=== PATIENT | female | born 1960 | race Caucasian/White ===

== ENCOUNTER 2024-08-04 11:33 | Inpatient (IN) | payer BC, MEDICARE, SELFPAY ==
[2024-08-04] VITALS (29 sets, daily range): BP systolic 110–191; BP diastolic 56–117; BMI 43.1; BMI 35.4
--- NOTE | 2024-08-04 08:54 | ED.GENMED ---
History of Present Illness
General
Chief Complaint: Blood Pressure Problem
Source: patient
Exam Limitations: none
Time Seen by Provider: 08/04/24 08:20
History of Present Illness
History of Present Illness:
64-year-old female complaining of dizziness disequilibrium headache feeling off some chest pressure checked her blood pressure which was high. Currently feeling better.
Past History
Past History
ED Past Medical History: GERD, HTN, Hypercholesterolemia and Valvular disease
ED Past Surgical History: Cholecystectomy
Social History
Tobacco: Non-smoker
Alcohol: None
Drug: None
Family History
Family History: Other ([place] - father)
Review of Systems
Review of Systems
All Other Systems: Not applicable
Constitutional: Denies fever
Cardiac: Denies syncope
ABD/GI: Reports no symptoms
Neurological: Denies weakness or numbness
Phy Exam
Physical Exam
Physical Exam:
GENERAL: Alert and oriented in no apparent distress
EYE: Orbits normal. Extraocular muscles intact
NECK: Supple, no carotid bruit
ENT: Pharynx without erythema
CARDIAC: Regular rate and rhythm with mild to moderate midsystolic murmur
LUNGS: Clear breath sounds,normal
ABDOMEN: Soft, without focal tenderness or distention
NEUROLOGICAL: Alert and oriented , cranial nerves II through XII intact. Speech normal. [id number] normal. [id number]-[id number] normal. Light touch intact.
SKIN: Warm and dry, no rash or lesion, no discoloration, skin intact.
MUSCULOSKELETAL: No edema,no deformity.Good color
PSYCH: Normal and appropriate interaction.
Course
Orders/Labs/Results
Orders:
Orders
08/04/24 08:18
Electrocardiogram (*1) Urgent
Reason for Study: Hypertension, Benign
08/04/24 08:19
EKG- Treatment ONCE
08/04/24 08:48
IV Insert/Care/Rem.- Treatment PRN
08/04/24 08:49
CT Head W/o Iv Contrast Urgent
Comment:
Reason For Exam: Headache/disequilibrium
Cardiac Monitoring- Treatment ONCE
08/04/24 08:58
Basic Metabolic Panel Urgent
Complete Blood Count/With Diff Urgent
Troponin I Urgent
08/04/24 09:00
PTT Urgent
Comment: Obtain baseline before beginning heparin infusion if not already collected
08/04/24 09:01
US Cerebrovascular Urgent
Comment:
Reason For Exam: Disequilibrium/dizziness
08/04/24 09:54
Heparin 4,000 units IV NOW STA
08/04/24 10:00
Heparin 36074 Units/250 ml 25,000 units in 250 ml IV PER PROTOCOL
Weight to be used for heparin protocol in kilograms (kg):: 112
Protocol:: Cardiac Tx/Acute Coronary
PTT Goal Range to be used:: PTT 73 to 111 seconds
Order type:: Initial
INITIAL Infusion Dose (UNITS/KG/hr) & then follow protocol:: 12 units/kg/hr
Infusion Dose in UNITS/hr & then follow protocol (UNITS/hr):: 1,000
INFUSION RATE in mL/hr & then follow protocol (mL/hr):: 10
PTT less than or equal to 64 seconds:: Increase rate by 200 units/hr (+ 2 mL/hr)
PTT 64.1 to 72.9 seconds:: Increase rate by 100 units/hr (+ 1 mL/hr)
PTT 73 to 111 seconds:: Target Range. No change in rate.
PTT 111.1 to 130.9 seconds:: Decrease rate by 100 units/hr (- 1 mL/hr)
PTT 131 to 199.9 seconds:: HOLD for 1 hr. Then decrease rate by 200 units/hr (- 2 mL/hr)
PTT greater than or equal to 200 seconds:: HOLD for 2 hrs & Notify Provider. Then decrease by 200 units/hr (-
2 mL/hr)
Lab follow-up:: Each change, PTT q6h until 2 consecutive are therapeutic. Then PTT
daily.
08/04/24 10:53
EKG [Electrocardiogram (*1)] Urgent
Reason for Study: Tachycardia
EKG- Treatment ONCE
08/04/24 10:56
Aspirin 325 mg PO NOW STA
Nitroglycerin Sublingual [Nitrostat (Sublingual)] 0.4 mg SL NOW STA
08/04/24 11:02
Admit/Transfer Patient As Directed
Co-Sign Provider:
Level of Care: Inpatient admission
Assign to:: IVU
Physician / Group: nasra watson
Diagnosis: acs/nstemi
Reason for Hospitalization: acs/nstemia
Expected length of stay greater than two midnights?: Yes
ELOS- Estimated Length of Stay in days: 2
I certify the patient meets the requirements for IP care: Yes
08/04/24 11:04
PRN Pain Medication Management As Directed
May give lesser potent ordered pain med per pt: Yes
preference::
Protocol:: Medication orders for pain may be administered in a
manner that supports deferring to patient preference
when the pt is:
- Requesting an ordered lesser potent pain medication.
Least to most potent pain medications are defined
as: acetaminophen < NSAID < tramadol < opioids
(morphine, oxycodone, hydromorphone).
- Requesting a lesser dose of the same medication IF
ORDERED.
- Requesting a less intrusive route of administration
if both routes are prescribed by the provider (PO <
IV).
08/04/24 11:08
Code Status As Directed
Resuscitation Status: Full Code
08/04/24 11:13
Activity As Directed
Activity Level: With Assistance
Vital Signs As Directed
Frequency: Per unit guidelines
Pulse Ox/spot Check [RESP] Routine
Quantity: 1
08/04/24 11:30
Nitroglycerin 100 mg/250 ml [Nitroglycerin Premix] 100 mg in 250 ml IV PER PROTOCOL
Initial dose in mcg/min, then titrate:: 10
Titrate to keep:: Chest Pain Free
Titrate by mcg/min:: 5 mcg/min, may increase by 10 mcg/min if dose > 20 mcg/min
Frequency of titrations (minutes):: every 3-5 minutes
Maximum dose in mcg/min:: 200
Begin to taper infusion when:: Remained at goal for 2hrs
Taper by mcg/min:: 5 mcg/min
Frequency of taper (minutes) if patient maintains goal:: 30
Taper to off?: Yes
If infusion off & no longer maintaining goal:: Contact Provider
08/04/24 11:31
Echo 2D MMode Color/Doppler [Echo 2D MMode Color/Doppler] Urgent
Reason for Study: chest pain and aortic stenosis
Cardiology Consult: Imer Loya
08/04/24 11:38
Lipid Profile [Cardiovascular Evaluation] Stat
08/04/24 11:39
Hemoglobin A1c [Glycohemoglobin (HgbA1c)] Stat
Troponin I Q6H
08/04/24 14:15
Bisacodyl [Dulcolax] 10 mg RECTAL [id number] PRN
Docusate W/Senna [Senokot-S] 1 tablet PO BIDPRN PRN
Polyethylene Glycol Powder [Miralax] 17 grams PO DAILYPRN PRN
08/04/24 16:30
PTT Urgent
08/04/24 17:15
Troponin I Q6H
08/04/24 18:00
Atorvastatin [Lipitor] 40 mg PO QPM
08/04/24 20:00
Lisinopril [Zestril] 10 mg PO BID
Metoprolol [Lopressor] 12.5 mg PO BID
08/04/24 22:00
Acetaminophen [Tylenol] 325 mg PO HS
08/04/24 23:15
Troponin I Q6H
08/05/24 06:00
Basic Metabolic Panel IN AM
Complete Blood Count/No Diff IN AM
08/05/24 08:00
fluticasone propionate 1 spray NASAL DAILY
08/05/24 18:00
Aspirin Low Dose EC [Aspir Low (Enteric Coated)] 81 mg PO QPM
08/06/24 06:00
Basic Metabolic Panel IN AM
Complete Blood Count/No Diff IN AM
08/07/24 06:00
Basic Metabolic Panel IN AM
Complete Blood Count/No Diff IN AM
08/08/24 06:00
Basic Metabolic Panel IN AM
Complete Blood Count/No Diff IN AM
08/09/24 06:00
Basic Metabolic Panel IN AM
Complete Blood Count/No Diff IN AM
08/10/24 06:00
Basic Metabolic Panel IN AM
Complete Blood Count/No Diff IN AM
Abnormal Lab Results
08/04/24
08:58
Creatinine 0.5 L mg/dL
(0.6-1.0)
Glucose 112 H mg/dl
(70-99)
08/04/24 08:58
08/04/24 08:58
Vital Signs
Initial and Last Documented VS:
Initial Vital Signs
Temp Pulse Resp BP Pulse Ox
98.0 F 112 16 191/109 98
08/04/24 08:15 08/04/24 08:15 08/04/24 08:15 08/04/24 08:15 08/04/24 08:15
Last Documented Vital Signs
Temp Pulse Resp BP Pulse Ox
98.0 F 75 14 126/77 94
08/04/24 08:15 08/04/24 14:07 08/04/24 12:45 08/04/24 12:40 08/04/24 12:45
MDM/Problems Addressed
Differential Diagnosis Includes:
Patient with vague symptoms including chest tightness neck tightness dizziness shakiness concern for blood pressure. Clinically stable and nontoxic. Workup in progress. Doubt cardiac but this will be evaluated. Doubt stroke although in the
differential. Neurologically stable. She does have a murmur but she does not know the source of. Will try to contact her behavioral health care coordinator.
*Pulse Oximetry
SaO2: 98
Oxygen Mode of Delivery: Room air
Patient hypoxic: no
*EKG
Interpreted by ED Provider?: Yes
Interpretation: abnormal
Comparison EKG: no comparison EKG present
Heart Rate: 98
Rate: normal
Rhythm: sinus
[place]: normal axis
Interval: normal interval
QRS Pattern: normal QRS
Ischemia: non-specific ST changes
*Critical Care Note
Total Time (30-74mins, 75-104mins- exclusive of procedures): Not Applicable
Update Note
Update Note:
0955.... Troponin positive. I reevaluated the patient who remains in no distress. Reassessed her history. This time she stated this started with bilateral jaw pain neck tightness some chest tightness along with the dizziness she described
earlier. She has very minimal symptoms at this time. Will start heparin. No contraindication. Cardiology and hospitalist contacted
ED Attending Note
-
Portions of this chart may have been created with voice recognition software.� Occasional wrong word or��sound alike� substitutions may have occurred due to the inherent limitations of voice recognition software.
Discharge Plan
Departure
Patient Disposition: Admit
Date of Disposition: 08/04/24
Time of Disposition: 09:56
Presentation/result/management discussed w/ accepting MD/DO: Cardiology
Discharge Problem:
Non-STEMI NC
Interventions
Interventions:
*Risk Screen - Suicide Last Done: 08/04/24 08:15
*General Assessment Last Done: 08/04/24 08:39
*Neglect/Abuse Screening Last Done: 08/04/24 08:15
*ED- Fall Risk Assessment Last Done: 08/04/24 08:39
*ED COVID-19 Vaccine History Last Done: 08/04/24 08:39
*Nursing Disposition Last Done: 08/04/24 12:51
ED- Cardiac Assessment Last Done: 08/04/24 08:39
ED- Neurological Assessment Last Done: 08/04/24 08:39
ED- Pulmonary Assessment Last Done: 08/04/24 08:39
Discharge Date and Time
Discharge Date/Time: 08/04/24 12:52
[2024-08-04 09:14] LABS: Hematocrit 40.3 % (37.0-47.0); Hemoglobin 13.8 g/dL (12.0-16.0); Mean Corp Hgb Conc. 34.2 g/dL (33.0-37.0); Mean Corpuscular Volume 90.2 fL (81.0-99.0); Nucleated Red Blood Cells % 0 %; Platelet Count 265 10^3/uL (130-400); Red Cell Dist. Width 13.2 % (11.5-14.5)
[2024-08-04 09:46] LABS: Blood Urea Nitrogen 15 mg/dl (7-17); Calcium 10.1 mg/dl (8.4-10.2); Carbon Dioxide 28 mmol/L (22-30); Chloride 106 mmol/L (98-107); Estimated Creatinine Clearance 117 ml/min; Glucose 112 mg/dl (70-99); Potassium 4.2 mmol/L (3.5-5.1); Sodium 143 mmol/L (135-145); eGFR > 60.00
[2024-08-04] MEDS: HEPARIN 4000 UNITS IV (10:18)
[2024-08-04] MEDS: HEPARIN 25000 UNITS/250 ML IV (10:19)
[2024-08-04 10:37] LABS: APTT 28.5 Sec (23.4-35.0)
[2024-08-04] MEDS: ASPIRIN 325 MG PO (11:09)
[2024-08-04] MEDS: NITROSTAT (SUBLINGUAL) 0.4 MG SL (11:09)
--- NOTE | 2024-08-04 11:22 | CON.CAR ---
Addendum entered and electronically signed by Janna Engle PA-C 08/04/24 14:15:
Second troponin returned < 0.012. Given rather quick change compared to initial, called down to lab who re-ran both troponin samples from 08:58 and 11:39. On re-run, initial troponin also negative (NOT 1.02). Possible sampling error by report. Value
updated in [employer]. Care team updated.
Addendum entered and electronically signed by Imer Loya MD 08/04/24 13:08:
Attending addendum: Patient seen and examined. PA note reviewed and findings independently confirmed by me. I met with the patient, her , and discussed the case with Dr. Kirk. Briefly, this is a 64-year-old female with a past medical
history notable for hypertension, hyperlipidemia, prior TIA secondary to hypertension, and aortic valve stenosis rated as mild by her last echocardiogram in 2021. She presented to [facility] for evaluation of of dizziness associated with
neck and jaw discomfort that began this morning after she returned from a [employer] shopping trip at about 7 AM. She presented to the emergency department for further evaluation primarily with complaints of dizziness and did not initially even
mention chest discomfort or jaw discomfort.
Her troponin returned mildly elevated at 1.02 ng/mL but was undetectable on remeasurement several hours later.
She does have known aortic stenosis with an echocardiogram earlier today measuring a mean gradient of 28 mmHg. LV function was normal.
GEN: AAO x 3.��No acute distress
HEENT:��NC/AT, sclera are anicteric, hearing and nares are normal.��MMM
NECK: Supple.��Normal JVP
LUNGS: Clear to bases bilaterally.��No wheezing or rhonchi
CV: Regular rate and rhythm.��Normal S1/S2.��No S3, No S4.��Murmur: 2/6 crescendo decrescendo murmur right upper sternal border and apex
ABD : Soft, NT, ND, No HSM.��Bowel sounds are present. Bruit is present versus radiation of aortic murmur.
EXT: No CCE
NEURO: No focal neurologic deficits�
IMPRESSION/RECOMMENDATIONS:
-Chest pain with elevated troponin
Will proceed with coronary angiography given waxing and waning in symptoms. Interestingly repeat troponin returned undetectable. Will call chemistry laboratory and ask him to confirm results
Given symptoms and elevated troponin we will proceed with coronary angiography
Patient initially stated that she was told she was allergic to IV contrast following breast MRI. We discussed that gadolinium is different than contrast utilized for CT scans or IV contrast. When she came to the catheterization laboratory she
reported that her throat closed and she experienced skin itchiness at some point in the past related to contrast. This was completely different than her initial explanation of the contrast allergy and the decision was made to proceed with
premedication including steroid and Benadryl.
Continue IV nitro and heparin
Risks and benefits of catheterization and angioplasty explained in depth both to the patient and to her . They were both in agreement to proceed
-Aortic stenosis
Moderate by echocardiogram with preserved LV function
-Hypertension
Patient does not monitor home blood pressures with any regularity. Will titrate medicines based on�readings while hospitalized
-Hyperlipidemia
May need higher intensity statin for goal LDL cholesterol less than 70 mg/dL or closer to 55 mg/dL based on angiographic findings
Original Note:
Consultation
Consultation Request
Date/Time Consultation Requested: 08/04/2024
Date/Time Consultation Performed: 08/04/2024
Requesting Provider: Dr. Kirk
Performing Provider: Janna Engle PA-C for Dr. Loya
Reason for Consultation: NSTEMI
Medical History
-
History of Present Illness:
HPI: Leila is a 64 year old female with PMH of hypertension, hyperlipidemia, aortic stenosis, prior TIA, and GERD. Presented to [facility] ER for evaluation of chest pressure with radiation into her neck and jaw as well as dizziness/headache. She
states she woke up at 4AM today and felt she was in her normal state of health, but by 7 AM began noticing pressure/heaviness along her anterior chest which feels like someone is standing on her. She notes the pressure goes into her neck/jaw and she
states it feels as though her jaw is wired shut. She took her normal AM medications as well as benadryl and tylenol and had no change in her symptoms, so she drove to [facility] for evaluation. On arrival, she continued with 2-3/10 chest pressure and
dizziness. In ER, carotid US and head CT were without acute abnormality. Labwork returned with elevated troponin of 1.02. She was started on IV heparin and cardiology consulted for evaluation. BP overall stable in ER, however notes this AM when
symptoms including headache started, BP was 180/100. Notes no SOB other than feeling the tightness/pressure into her throat. Denies any symptoms leading up to this event this AM.
PMH:
HTN
HLD
Mild-moderate
h/o TIA
GERD
Past Medical History
Past Medical History: Other (In HPI)
Past Surgical History: Cholecystectomy and Other (hysterectomy, carpal tunnel release, lumpectomy, hernia surgery)
Social History
Tobacco: Former Smoker
Alcohol: Occasional
Drug: None
Personal:
Living: With Family
Employment: Employed ([employer])
Family History
Family History: CAD and Cancer
Allergies / Home Medications
Allergy/AdvReac Type Severity Reaction Status Date / Time
amoxicillin Allergy Intermediate Rash Verified 08/04/24 08:17
iodine Allergy Intermediate Unknown Verified 08/04/24 08:17
levofloxacin (From Levaquin) Allergy Intermediate Unknown Verified 08/04/24 08:17
nitrofurantoin (From Allergy Intermediate Unknown Verified 08/04/24 08:17
Macrobid)
sulfamethoxazole Allergy Intermediate Unknown Verified 08/04/24 08:17
tramadol Allergy Intermediate Nausea / Verified 08/04/24 08:17
Vomiting
vancomycin Allergy Intermediate Unknown Verified 08/04/24 08:17
gabapentin Allergy Unknown Verified 08/04/24 08:17
Iodinated Contrast Media Allergy Unknown Verified 08/04/24 09:00
�Medication �Instructions �Recorded �Confirmed �Type
acetaminophen 325 mg tablet 325 mg PO HS 08/04/24 08/04/24 History
(Tylenol)
aspirin 81 mg tablet,delayed 81 mg PO QPM 08/04/24 08/04/24 History
release
cranberry fruit 450 mg tablet 450 mg PO DAILY 08/04/24 08/04/24 History
(cranberry)
diphenhydramine HCl 25 mg capsule 25 mg PO DAILYPRN PRN ALLERIGES 08/04/24 08/04/24 History
(Benadryl)
diphenhydramine HCl 25 mg capsule 25 mg PO HS 08/04/24 08/04/24 History
(Benadryl)
fluticasone propionate 50 1 spray intranasal DAILY 08/04/24 08/04/24 History
mcg/actuation nasal
spray,suspension
ibuprofen 600 mg tablet 600 mg PO DAILY 08/04/24 08/04/24 History
lisinopril 10 mg tablet 10 mg PO BID 08/04/24 08/04/24 History
milk thistle 150 mg capsule 150 mg PO DAILY 08/04/24 08/04/24 History
simvastatin 10 mg tablet 10 mg PO HS 08/04/24 08/04/24 History
turmeric 400 mg capsule 400 mg PO DAILY 08/04/24 08/04/24 History
Review of Systems
-
History Source: Patient
All other systems: Negative unless noted
Physical Exam
Vital Signs
Temp Pulse Resp BP Pulse Ox
98.0 F 90 21 154/71 96
08/04/24 08:15 08/04/24 10:30 08/04/24 10:30 08/04/24 11:09 08/04/24 10:30
Lab Results
08/04/24 08:58
08/04/24 08:58
Troponin I 1.020 ng/ml H* 08/04/24 08:58
Physical Exam
General: Well Developed, Well Nourished and No Apparent Distress
HEENT: Normocephalic, Anicteric and Moist Mucous Membranes
Respiratory: Clear and Non Labored Respirations
Cardiac: S1/S2, Regular Rhythm and Murmur
Musculoskeletal: No Clubbing, No Cyanosis and No Edema
Skin: Warm and Dry
Neuro: AO x 3 and Nonfocal/Grossly Intact
Psych: Calm
Impression / Plan
-
PCP: Dr. Brand
Component Technician: Dr. Wallace ([facility])
Impression:
Presented with chest pain, dizziness
Elevated troponin, concern for NSTEMI
HTN
HLD
Mild-moderate
h/o TIA
GERD
Stress echo 09/2021: Low risk stress test with average exercise tolerance for age. EF 55%
Echo 06/2021 @ [facility]: Normal biventricular systolic function, mild LVH, mild to moderate with mean gradient 14 mmHg
Echo 08/04/2024: Study pending
Plan:
-Presented with chest pain which started this AM at 7AM with radiation into her jaw. Admitted with elevated troponin, concern for NSTEMI
-Initial troponin 1.02, continue to trend to peak.
-Still w/ CP into jaw in ER, SL nitro ordered by me, however still w/ pain, so starting nitro gtt. Titrate til pain free
-s/p aspirin 324mg in ER. Continue aspirin 81mg daily
-Agree w/ IV heparin.
-Check echo. Known mild-mod by last echo in 2021 at [facility].
-Carotid US, head CT negative in ER.
-BP elevated at home. Continue lisinopril, follow with starting nitro gtt, consider starting BB.
-On simvastatin 10mg daily as OP. CVE pending. May need to transition to high intensity statin.
-Hgb A1c pending
-Given chest pain with elevated troponin, concerning for NSTEMI, will plan for [facility] this admission, possibly later today.
-Keep NPO
HPI: Leila is a 64 year old female with PMH of hypertension, hyperlipidemia, aortic stenosis, prior TIA, and GERD. Presented to [facility] ER for evaluation of chest pressure with radiation into her neck and jaw as well as dizziness/headache. She
states she woke up at 4AM today and felt she was in her normal state of health, but by 7 AM began noticing pressure/heaviness along her anterior chest which feels like someone is standing on her. She notes the pressure goes into her neck/jaw and she
states it feels as though her jaw is wired shut. She took her normal AM medications as well as benadryl and tylenol and had no change in her symptoms, so she drove to [facility] for evaluation. On arrival, she continued with 2-3/10 chest pressure and
dizziness. In ER, carotid US and head CT were without acute abnormality. Labwork returned with elevated troponin of 1.02. She was started on IV heparin and cardiology consulted for evaluation. BP overall stable in ER, however notes this AM when
symptoms including headache started, BP was 180/100. Notes no SOB other than feeling the tightness/pressure into her throat. Denies any symptoms leading up to this event this AM.
Data Reviewed
-
EKG: Tracing Personally Visualized and interpreted
CT Scan: Report Reviewed by me
Ultrasound: Report Reviewed by me
Labs: Labs Reviewed by me
Old Records: Requested and Reviewed
--- NOTE | 2024-08-04 11:34 | CM ---
CM reviewed chart and met with pt and bedside in ED.
Lives with in 1 level apartment, [address]
Independent in ADLs, personal care and ambulation at baseline. No DME.
No hx VN/SNF.
PCP: Zay Brand
Pharmacy: [facility]
Discharge plan: Anticipate home pending ongoing medical evaluation.
[2024-08-04] MEDS: NITROGLYCERIN PREMIX 250 IV (11:47)
[2024-08-04 12:06] LABS: Glycohemoglobin (HgbA1c) 5.6 % (4.0-5.6)
--- NOTE | 2024-08-04 12:06 | CARDSERVLU ---
Echocardiogram with Lumason completed after protocol screening completed. Allergies verified.
Patent IV site: _Right forearm site clear____
IV site flushed with 0.9% NaCl pre and post administration.
Diluted bolus method utilized to enhance visualization of ventricular pelletier.
Total volume given: ___3_ mL
Patient tolerated all procedures well without complications.
[2024-08-04 12:16] LABS: HDL Cholesterol 53 mg/dl; LDL Cholesterol, Calculated 96 mg/dl; Very Low Density Lipoprotein 19 mg/dl (0-30)
[2024-08-04 12:28] LABS: Troponin I < 0.012 ng/ml
--- NOTE | 2024-08-04 13:42 | ITS.CL.CATH ---
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
Cardiac Catheterization
Procedure Report:
LEFT HEART CATHETERIZATION
Date of Procedure: August 04, 2024
Referring: Dr. Amanda Barton
PROCEDURES:
1. Left heart catheterization with coronary angiography
INDICATION: This is a 64-year-old female with a past medical history notable for hypertension, hyperlipidemia, hypertensive associated TIA, and aortic stenosis. She presented to [facility] for evaluation of dizziness and was found to be
quite hypertensive. Her symptoms initially were felt to be attributed to hypertension but her troponin returned mildly elevated at 1.020 ng/mL. The patient then reported she had experienced chest heaviness and jaw discomfort leading her to seek
medical attention and that symptoms were persisting. A cardiology consult was requested. Her last echocardiogram from nearly 3 years ago had mild aortic stenosis. A repeat echocardiogram was performed and her mean gradient now measured 28 mmHg
with an aortic valve area 0.9 cm�. She continued to experience some level of chest and jaw discomfort although much improved from admission. A repeat troponin returned undetectable less than 0.012 ng/mL. However, in the setting of ongoing
symptoms she is referred for coronary angiography. She is now referred for coronary angiography.
ACCESS: Right radial artery, 6 Greek sheath
HEMODYNAMICS : (mmHg)
AO (s/d) : 128/77, 94
LV (s/d) : 155/8
LVEDP : 15
AORTIC VALVE
Peak gradient: 29 mmHg
CORONARY FINDINGS
DOMINANCE: Normal
LEFT MAIN: Normal
LEFT ANTERIOR DESCENDING: The LAD originates is a large-caliber vessel from the left main. A large first diagonal branch arises from the proximal third of the LAD and is widely patent. The mid LAD beyond the diagonal branch becomes a medium
caliber vessel that is widely patent to the apex.
CIRCUMFLEX: The circumflex is large and gives rise to a single sizable obtuse marginal branch which is widely patent
RIGHT CORONARY ARTERY: Large-caliber dominant vessel widely patent over its course
VENTRICULOGRAPHY: Not done
SEDATION: 26 minutes of procedural sedation was utilized. An independent medical services assistant was present to assist with and help manage the patient's level of consciousness and physiologic status.
RADIATION SUMMARY: Fluoro Time (min): 3.8, Dose (mGy): 447, DAP (Gy.cm2) : 22.4
Closure Device: TR band
CONCLUSIONS
1. Nonobstructive coronary disease
2. Moderate aortic stenosis
RECOMMENDATIONS
1. Continue management of coronary risk factors
2. Will need follow-up with Dr. Wallace and should have her aortic valve disease followed over time
Copy to: Dr. Josselin Wallace
[2024-08-04 14:02] LABS: Troponin I < 0.012 ng/ml
--- NOTE | 2024-08-04 15:16 | HPS.HSE ---
Family Physician
-
Family Physician: Zay Brand MD
Chief Complaint
-
chest pain
History of Present Illness
64 female history of hypertension high cholesterol who presented with acute onset of dizziness, nausea chest pressure which radiated to her jaw and neck that has been constant gets worse with exertion and improves with rest however is is not
alleviated. Started after going to [place] to buy [employer]. Father history of LA massive LA causing in his 60s.
Troponin in the once. EKG nonischemic however some ST T wave changes and inversions especially in the inferior leads. Blood pressure initially high however improved now.
Medical History
Past Medical History
Past Medical History: Reports HTN and Hypercholesterolemia
Past Surgical History: Reports Gynocological and Orthopedic
Social History
Tobacco: Former Smoker
Alcohol: None
Family History
Family History: CAD, Cancer and Diabetes
Allergies / Home Medications
Allergies reflects when Allergies were last updated in [facility].
Home Medications with original date entered in [facility]
Allergy/Medication List:
Allergies
Allergy/AdvReac Type Severity Reaction Status Date / Time
amoxicillin Allergy Intermediate Rash Verified 08/04/24 08:17
iodine Allergy Intermediate Unknown Verified 08/04/24 08:17
levofloxacin (From Levaquin) Allergy Intermediate Unknown Verified 08/04/24 08:17
nitrofurantoin (From Allergy Intermediate Unknown Verified 08/04/24 08:17
Macrobid)
sulfamethoxazole Allergy Intermediate Unknown Verified 08/04/24 08:17
tramadol Allergy Intermediate Nausea / Verified 08/04/24 08:17
Vomiting
vancomycin Allergy Intermediate Unknown Verified 08/04/24 08:17
gabapentin Allergy Unknown Verified 08/04/24 08:17
Iodinated Contrast Media Allergy Unknown Verified 08/04/24 09:00
Home Medications
acetaminophen 325 mg tablet (Tylenol) 325 mg PO HS 08/04/24
aspirin 81 mg tablet,delayed release 81 mg PO QPM 08/04/24
cranberry fruit 450 mg tablet (cranberry) 450 mg PO DAILY 08/04/24
diphenhydramine HCl 25 mg capsule (Benadryl) 25 mg PO DAILYPRN PRN ALLERIGES 08/04/24
diphenhydramine HCl 25 mg capsule (Benadryl) 25 mg PO HS 08/04/24
fluticasone propionate 50 mcg/actuation nasal spray,suspension 1 spray intranasal DAILY 08/04/24
ibuprofen 600 mg tablet 600 mg PO DAILY 08/04/24
lisinopril 10 mg tablet 10 mg PO BID 08/04/24
milk thistle 150 mg capsule 150 mg PO DAILY 08/04/24
simvastatin 10 mg tablet 10 mg PO HS 08/04/24
turmeric 400 mg capsule 400 mg PO DAILY 08/04/24
Review of Systems
-
A 12 point ROS was completed and negative except as noted: Yes
Physical Exam
Vital Signs
Vital Signs
Temp Pulse Resp BP Pulse Ox
98.1 F 80 18 125/79 98
08/04/24 13:55 08/04/24 14:30 08/04/24 14:00 08/04/24 14:30 08/04/24 14:00
Physical Exam
General: Well Developed and Well Nourished
HEENT: NormoCephalic and Anicteric
Respiratory: Clear
Cardiac: S1/S2 and Regular Rhythm
GI: Soft, Non Tender, Non Distended and Normal Bowel Sounds
Musculoskeletal: No Clubbing and No Cyanosis
Neuro: Awake, Alert, Oriented and AO x 3
Psych: Calm
Laboratory Results
-
08/04/24 08:58
08/04/24 08:58
Laboratory Results
APTT 28.5 Sec (23.4-35.0) 08/04/24 09:00
Troponin I < 0.012 ng/ml 08/04/24 11:39
Impression/Plan
-
Chest discomfort with anginal equivalents along with dizziness elevated troponin
Trend troponin
Heparin drip
property assessment monitor
2D echo
Cardiology consult
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
N.p.o.
A1c
Lipids
Hypertension
Continue antihypertensive
Hyperlipidemia
Stop simvastatin
Start high intensity statin
Check lipid profile
--- NOTE | 2024-08-04 15:34 | CM ---
Chart reviewed. Patient is independent of ADLS, lives with her in a apartment 2nd floor, [address] EMIR, 0 DME. Plan is for the patient to return home. CM to follow
[2024-08-04 17:50] LABS: APTT 29.1 Sec (23.4-35.0)
[2024-08-04] MEDS: LIPITOR 40 MG PO (17:52)
[2024-08-04 18:12] LABS: Troponin I < 0.012 ng/ml
--- NOTE | 2024-08-04 18:53 | PTCARENOTE ---
Received pt post cath. VSSl. Right radial cath site w/ R band intact with 9 ml of air. Pt denies chest pain or sob. Post angiography orders noted. Will monitor.
[2024-08-04] MEDS: ZESTRIL 10 MG PO (19:56)
[2024-08-04] MEDS: LOPRESSOR 12.5 MG PO (19:57)
[2024-08-04] MEDS: TYLENOL 325 MG PO (20:34)
[2024-08-04 23:49] LABS: Troponin I 0.028 ng/ml
[2024-08-05] VITALS (11 sets, daily range): BP systolic 120–150; BP diastolic 64–90; PULSE 68–78; O2SAT 96–98; BMI 42.5
[2024-08-05] MEDS: TYLENOL 325 MG PO (03:19)
[2024-08-05 04:16] LABS: Hematocrit 37.5 % (37.0-47.0); Hemoglobin 12.8 g/dL (12.0-16.0); Mean Corp Hgb Conc. 34.1 g/dL (33.0-37.0); Mean Corpuscular Volume 91.2 fL (81.0-99.0); Platelet Count 258 10^3/uL (130-400); Red Cell Dist. Width 13.3 % (11.5-14.5)
[2024-08-05 04:39] LABS: Blood Urea Nitrogen 15 mg/dl (7-17); Calcium 9.1 mg/dl (8.4-10.2); Carbon Dioxide 26 mmol/L (22-30); Chloride 110 mmol/L (98-107); Estimated Creatinine Clearance 103 ml/min; Glucose 81 mg/dl (70-99); Potassium 4.2 mmol/L (3.5-5.1); Sodium 143 mmol/L (135-145); eGFR > 60.00
--- NOTE | 2024-08-05 04:55 | PTCARENOTE ---
Pt NSR on monitor. AAOx4. VSS. Pt c/o GARRETT 04/14. Tylenol PRN effective. Pt independent in the room.
[2024-08-05] MEDS: LOPRESSOR 12.5 MG PO (08:08)
[2024-08-05] MEDS: ZESTRIL 10 MG PO (08:08)
--- NOTE | 2024-08-05 09:53 | PTOTSP ---
Patient demonstrates safe and independent mobility, asymptomatic throughout session, no skilled physical therapy needs at this time.
--- NOTE | 2024-08-05 10:54 | CM ---
Chart reviewed. Patient is independent of ADLS, lives with her in a 2nd floor apartment, 7 EMIR, 0 DME. Plan is for the patient to return home. CM to follow
--- NOTE | 2024-08-05 12:28 | W.DCSUMMARY ---
Discharge Summary
Discharge Data
Date of Admission: 08/04/24
Date of Discharge: 08/05/24
-
Pending Results: No
Hospital Course
64 female history of hypertension high cholesterol
Presented with dizziness chest discomfort with radiation to the jaw. There were no EKG changes however. Initially noted to have a troponin that was 1.0. Started on a heparin drip. Continued to have intermittent chest discomfort worse with
exertion and improved with rest along with dizziness. Therefore cardiology has obtained a 2D echocardiogram and recommended left heart catheterization urgently. 2D echocardiogram result as below. Left heart catheterization as below however
nonobstructive CAD. Orthostatic negative. Cardiology had no further recommendation. Increased dose of lisinopril to 20mg BID. Outpatient PCP and Cardiology follow up. Informed her if the dizziness return that she should come back to have a stroke
work up completed, she verbalized understanging.
2d echo
CONCLUSIONS
1. Left ventricle: Normal size and function with an estimated ejection
fraction of 55-60%. Mild concentric LVH. Indeterminate diastolic function.
2. Right ventricle: Normal
3. Atria: Normal
4. Mitral valve: No mitral regurgitation
5. Aortic valve: The aortic valve leaflets are thickened and restricted.
There is moderate aortic stenosis with peak and mean gradients of 59 and 28
mmHg respectively. The estimated aortic valve area by the continuity equation
is 0.9 cm2 when using an LVOT diameter of 1.8 cm. No aortic insufficiency.
6. Tricuspid valve: Normal tricuspid valve with no tricuspid regurgitation
7. No prior studies for comparison
[facility]
CONCLUSIONS
1. Nonobstructive coronary disease
2. Moderate aortic stenosis
RECOMMENDATIONS
1. Continue management of coronary risk factors
2. Will need follow-up with Dr. Wallace and should have her aortic valve disease followed over time
Seen on the day of dischagre. No new compalints. No acute overnight events
States symptoms have completely resovled. She wants to go home. She is ambulating fine wihtout dizziness and chest pain
Reviewed hospitalization and findings including false + troponin.
REviewed use of CPAP, follow up with sleep medicine and nasal pillow education that connects to the CPAP
Discussed weight loss and dietary changes
NAD
Scleral Anicteric
MMM
No JVD
CTABL
RRR, S1/S2, HEIDI at RUSB
Soft, NT, ND, BS+
Warm, Dry
AAOx3, 5/5 motor strength in b/l ue and le, cn II-XII intact
Calm
More than 30 minutes spent in discharge including
Final examination of the patient
Summarizing hospital stay
Instructions for continuing care to all relevant caregivers
Preparation of discharge records, prescriptions, and referral forms
Total time spent (in minutes): 33
Discharge Plan
-
Patient Disposition: Home (Routine Discharge)
Discharge Diagnosis/Procedures: cardiac catherization
Condition: Good
Diet: Low Fat, Low Cholesterol and No added salt
Activity: As tolerated
Activity Restrictions/Additional Instructions:
Presented with dizziness chest discomfort with radiation to the jaw. There were no EKG changes however. Initially noted to have a troponin that was 1.0. Started on a heparin drip. Continued to have intermittent chest discomfort worse with
exertion and improved with rest along with dizziness. Therefore cardiology has obtained a 2D echocardiogram and recommended left heart catheterization urgently. 2D echocardiogram result as below. Left heart catheterization as below however
nonobstructive CAD. Orthostatic negative. Cardiology had no further recommendation. Increased dose of lisinopril to 20mg BID. Outpatient PCP and Cardiology follow up.
2d echo
CONCLUSIONS
1. Left ventricle: Normal size and function with an estimated ejection
fraction of 55-60%. Mild concentric LVH. Indeterminate diastolic function.
2. Right ventricle: Normal
3. Atria: Normal
4. Mitral valve: No mitral regurgitation
5. Aortic valve: The aortic valve leaflets are thickened and restricted.
There is moderate aortic stenosis with peak and mean gradients of 59 and 28
mmHg respectively. The estimated aortic valve area by the continuity equation
is 0.9 cm2 when using an LVOT diameter of 1.8 cm. No aortic insufficiency.
6. Tricuspid valve: Normal tricuspid valve with no tricuspid regurgitation
7. No prior studies for comparison
[facility]
CONCLUSIONS
1. Nonobstructive coronary disease
2. Moderate aortic stenosis
RECOMMENDATIONS
1. Continue management of coronary risk factors
2. Will need follow-up with Dr. Wallace and should have her aortic valve disease followed over time
Stand Alone Forms: DC Instructions- Cath/EP Lab
Referrals:
Zay Brand MD [Family Provider, Internal Medicine]
Janusz Wallace MD [Active, Cardiology] - 09/04/24 3:00 pm
Prescriptions:
New
lisinopril [Zestril] 20 mg tablet
20 mg PO BID Qty: 60 0RF
Continued
simvastatin 10 mg tablet
10 mg PO HS
acetaminophen [Tylenol] 325 mg Tablet
325 mg PO HS
aspirin 81 mg Tablet,Delayed Release (Dr/Ec)
81 mg PO QPM
milk thistle 150 mg Capsule
150 mg PO DAILY
diphenhydramine HCl [Benadryl] 25 mg Capsule
25 mg PO HS
diphenhydramine HCl [Benadryl] 25 mg Capsule
25 mg PO DAILYPRN PRN (Reason: ALLERIGES)
ibuprofen 600 mg Tablet
600 mg PO DAILY
fluticasone propionate 50 mcg/actuation [place],Suspension
1 spray INTRANASAL DAILY
cranberry 450 mg Tablet
450 mg PO DAILY
turmeric 400 mg Capsule
400 mg PO DAILY
Discontinued
lisinopril 10 mg Tablet
10 mg PO BID
Discharge Orders:
Discharge Patient (As Directed); Ordered 08/05/24
Ordered By: Jasper Damon
Care Plan Goals
Care Plan Goals:
Problem: Readiness for enhanced knowledge related to diagnosis and treatment plan
Goal: Understand your diagnosis and treatment plan needs, including medications if applicable.
Instructions: Know your diagnosis, underlying causes and treatment plan options, including medications if applicable. Consult with your health care team to learn about your diagnosis and treatment plan, including medications if applicable.
Discharge Date and Time
Print Language: [place]
== END 2024-08-05 13:06 | disposition home or self-care (01) | DRG 287 ==
LOC: IVU 11:33
PROVIDERS: ADMITTING PHYSICIAN Hospitalist; EMERGENCY PHYSICIAN Emergency Medicine; FAMILY PHYSICIAN Internal Medicine; OTHER PHYSICIAN Internal Medicine Interventional Cardiology
PROC: 4A023N7 Measurement of Cardiac Sampling and Pressure, Left Heart, Percutaneous Approach (ICD-10-PCS; 2024-08-04)
PROC: B2111ZZ Fluoroscopy of Multiple Coronary Arteries using Low Osmolar Contrast (ICD-10-PCS; 2024-08-04)
DX: I25.10 Atherosclerotic heart disease of native coronary artery without angina pectoris (principal); R42 Dizziness and giddiness; E78.00 Pure hypercholesterolemia, unspecified; I10 Essential (primary) hypertension; I35.0 Nonrheumatic aortic (valve) stenosis; K21.9 Gastro-esophageal reflux disease without esophagitis; Z90.49 Acquired absence of other specified parts of digestive tract; Z86.73 Personal history of transient ischemic attack (TIA), and cerebral infarction without residual deficits; Z87.891 Personal history of nicotine dependence; Z82.49 Family history of ischemic heart disease and other diseases of the circulatory system; Z88.5 Allergy status to narcotic agent; Z88.0 Allergy status to penicillin; Z88.2 Allergy status to sulfonamides; Z88.8 Allergy status to other drugs, medicaments and biological substances; Z88.1 Allergy status to other antibiotic agents; Z88.3 Allergy status to other anti-infective agents; Z91.041 Radiographic dye allergy status; Z79.82 Long term (current) use of aspirin; Z83.3 Family history of diabetes mellitus; Z90.710 Acquired absence of both cervix and uterus
CPT/HCPCS: 70450; 80048; 80061; 83036; 84484; 85025; 85027; 85730; 93005; 93306; 93458; 93880; 96374; 96375; 97162; 97165; 99152; 99153; 99285; C1894; Q9950; Q9967